=== PATIENT | male | born 1950 | race Caucasian/White ===

== ENCOUNTER 2021-07-02 15:18 | Outpatient (CLI) | payer MEDICARE, BC, SELFPAY ==
--- NOTE | 2021-07-02 15:41 | CT_ITS ---
WS: [id number] CT TEMPORAL BONES TECHNIQUE: Noncontrast CT of the temporal bones with coronal and sagittal reformatted images. CLINICAL INFORMATION: OTALGIA, LEFT EAR COMPARISON: None. DLP: 578.[address] scans at [facility] use at least one of these dose optimization techniques: automated e xposure control; mA and/or kV adjustment per patient size (includes targeted exams where dose is matc hed to clinical indication); or iterative reconstruction. FINDINGS: Partial opacification of the left mastoid air cells. Right mastoid air cells are well aerat ed. Soft tissue thickening along the cartilaginous external auditory canal with thickening of the tym panic membrane. Minimal mucosal thickening middle ear. Ossicles appear normal. Soft tissue thickening extends into Prussak's space with mild blunting of the scutum. Recommend correlation for cholesteato ma. Condylar fossa and mandibular condyles appear normal bilaterally. RIGHT: Normal tegmen tympani. Semicircular canals and cochlea are normal in appearance. Normal inner ear st ructures. Normal vestibular aqueduct. Facial nerve recess is normal. LEFT: Mastoid air cells are well aerated. Normal external auditory canal. Ossicles are normal in appearance . Middle ear is well aerated. Normal tegmen tympani. Semicircular canals and cochlea are normal in ap pearance. Prussak's space is normal. Normal inner ear structures. Normal vestibular aqueduct. Facial nerve recess is normal. Visualized intracranial contents and posterior fossa are normal. CT/CT temporal bone wo con* [id number] IMPRESSION: 1. Partial opacification left mastoid air cells with soft tissue thickening al jude the distal cartilaginous EAC with thickening of the tympanic membrane. Soft tissue thickening in Prussak's space with blunting of the scutum. Recommend EN T consultation to exclude small cholesteatoma. Findings can also be seen with c hronic infectious or inflammatory etiologies. 2. Ossicles appear normal bilaterally. 3. Normal inner ear structures bilaterally.
--- NOTE | 2021-07-02 15:41 | CT_ITS ---
WS: [id number] CT FACIAL BONES TECHNIQUE: Noncontrast facial bones with coronal and sagittal reformatted images. CLINICAL INFORMATION: OTALGIA LEFT EAR COMPARISON: None. DLP: 956.[address] scans at [facility] use at least one of these dose optimization techniques: automated e xposure control; mA and/or kV adjustment per patient size (includes targeted exams where dose is matc hed to clinical indication); or iterative reconstruction. FINDINGS: Mild left to right nasal septal deviation measuring 2-3 mm with rightward directed spur. Paranasal si nuses well aerated. Small retention cysts in the maxillary sinuses largest in the right maxillary sin us measuring 10 mm. Bilateral aleksandr bullosa. Small bilateral Benjamín cells. Mild narrowing of the ost iomeatal units bilaterally with mild mucosal thickening. Mild mucosal thickening left maxillary sinus measuring 2.5 mm. Frontal sinuses are well aerated. Mild mucosal thickening ethmoid air cells. Retention cysts left sphenoid sinus measuring 9 mm. Sphenoid ostia are patent. Mucosal thickening wit h partial opacification left mastoid air cells. Soft tissue thickening left middle ear. Normal paraph aryngeal fat. Normal posterior nasopharynx. CT/CT facial bones wo con* [id number] IMPRESSION: 1. Mild left to right nasal septal deviation measuring 2-3 mm. 2. Small retention cysts in the paranasal sinuses the largest in the right max illary sinus and the sphenoid sinus measuring 9-10 mm. 3. Partial opacification left mastoid air cells with soft tissue thickening in the middle ear. 4. Right mastoid air cells are well aerated.
== END 2021-07-02 15:19 | disposition home or self-care (01) ==
PROVIDERS: PCP Internal Medicine; Visit Provider Family Medicine
DX: H92.02 Otalgia, left ear (principal); H66.92 Otitis media, unspecified, left ear; J34.1 Cyst and mucocele of nose and nasal sinus; J34.2 Deviated nasal septum
CPT/HCPCS: 70480; 70486

== ENCOUNTER 2021-07-18 12:09 | Outpatient (CLI) | payer MEDICARE, BC, SELFPAY ==
--- NOTE | 2021-07-18 12:30 | XR_ITS ---
WS: [id number] CHEST 2 VIEWS HISTORY: PRE OP TESTING COMPARISON: 12/11/2018 Lungs: Clear with no abnormality. No pleural effusion or pneumothorax. Cardiac size: Normal. Mediastinum/Aorta: Normal mediastinum. Bones: Prior LEFT rotator cuff repair. XR/XR chest 2V* [id number] IMPRESSION: Normal chest.
--- NOTE | 2021-07-18 12:32 | ECG_ITS ---
[facility] Test Date: 2021-07-18 Pat Name: Herson Van Department: Room: Gender: Male Licensed Insurance Agent: : [id number] Requested By: Keenan Collins Order Number: [id number] Ángela MD: Melissa Pelayo M.D. Measurements Intervals [place] Rate: 62 P: -1 NM: 227 QRS: 0 QRSD: 93 T: 17 QT: 400 QTc: 407 Interpretive Statements SINUS RHYTHM WITH FIRST DEGREE AV BLOCK Compared to ECG 12/11/2018 01:50:29 First degree AV block now present Ventricular premature complex(es) no longer present Myocardial infarct finding no longer present Electronically Signed On 07-18-2021 19:09:53 CDT by Melissa Pelayo M.D. [id number]
== END 2021-07-18 12:10 | disposition home or self-care (01) ==
LOC: RT 12:17
PROVIDERS: PCP Family Medicine; Visit Provider Otolaryngology Otology & Neurotology
DX: H65.92 Unspecified nonsuppurative otitis media, left ear (principal); H90.A32 Mixed conductive and sensorineural hearing loss, unilateral, left ear with restricted hearing on the contralateral side; E11.3293 Type 2 diabetes mellitus with mild nonproliferative diabetic retinopathy without macular edema, bilateral; Z01.818 Encounter for other preprocedural examination; I44.0 Atrioventricular block, first degree
CPT/HCPCS: 71046; 93005

== ENCOUNTER → 2021-07-25 11:57 | Outpatient (BNVA) | payer MEDICARE, BC, SELFPAY | PROVIDERS: PCP Family Medicine; Visit Provider Otolaryngology Otology & Neurotology | DX: Z41.9 Encounter for procedure for purposes other than remedying health state, unspecified (principal); Z20.822 Contact with and (suspected) exposure to COVID-19 | CPT/HCPCS: 87635 ==

== ENCOUNTER 2023-09-14 15:52 | Outpatient (CLI) | payer MEDICARE, SELFPAY ==
--- NOTE | 2023-09-14 16:05 | XR_ITS ---
WS: [id number] Exam: XR ankle LT min 3V* [id number] Date/Time of Exam: 09/14/2023 4:11 PM Reason For Exam: Left ankle sprain No acute fracture or dislocation. The ankle mortise is equidistant. Soft tissue ossifications noted a long the inferior margin of the medial and lateral malleolar. Mild soft tissue swelling about the ank le. IMPRESSION: 1. Mild soft tissue swelling-no acute fracture.
--- NOTE | 2023-09-14 16:05 | XR_ITS ---
WS: [id number] Exam: XR foot LT 2V [id number] Date/Time of Exam: 09/14/2023 4:11 PM Reason For Exam: Left ankle injury No fracture or dislocation. No soft tissue foreign bodies are noted. Moderate degenerative changes in the IP joints and midfoot joints. Large heel spurs. IMPRESSION: 1. No fracture noted. 2. Degenerative changes.
== END 2023-09-14 15:53 | disposition home or self-care (01) ==
PROVIDERS: PCP Family Medicine; Visit Provider Nurse Practitioner Family
DX: S93.402A Sprain of unspecified ligament of left ankle, initial encounter (principal); X58.XXXA Exposure to other specified factors, initial encounter
CPT/HCPCS: 73610; 73620

== ENCOUNTER → 2025-10-29 10:45 | Outpatient (BNVA) | payer MEDICARE, SELFPAY | PROVIDERS: PCP Family Medicine; Visit Provider Emergency Medicine | DX: S97.82XA Crushing injury of left foot, initial encounter (principal); S92.422A Displaced fracture of distal phalanx of left great toe, initial encounter for closed fracture; S92.532A Displaced fracture of distal phalanx of left lesser toe(s), initial encounter for closed fracture; X58.XXXA Exposure to other specified factors, initial encounter; M79.89 Other specified soft tissue disorders | CPT/HCPCS: 73630 ==

== ENCOUNTER → 2025-10-31 09:37 | Outpatient (BNVA) | payer MEDICARE, SELFPAY | PROVIDERS: PCP Family Medicine; Visit Provider Podiatrist Foot & Ankle Surgery | DX: E11.42 Type 2 diabetes mellitus with diabetic polyneuropathy (principal); S92.425B Nondisplaced fracture of distal phalanx of left great toe, initial encounter for open fracture; W20.8XXA Other cause of strike by thrown, projected or falling object, initial encounter | CPT/HCPCS: 99204 ==